=== PATIENT | male | born 1965 | race Two or more races ===

== ENCOUNTER → 2019-04-13 | Outpatient (CLI) | payer OTHER ==
--- NOTE | 2019-04-13 16:10 | RADRPT ---
PROCEDURE: XR right knee and XR left knee. CLINICAL INDICATION: Bilateral knee pain TECHNIQUE: 4 images of the left knee and 4 images of the right knee are available for review. COMPARISON: None available FINDINGS: Right knee: There is no acute fracture. Alignment is normal. There is moderate severe medial femorotibial compartment osteoarthrosis with mild to moderate lateral and patellofemoral compartment osteoarthrosis. There are numerous large ossified bodies posteriorly that may be within a popliteal cyst. Left knee: There is no acute fracture. Alignment is normal. There is severe lateral femorotibial compartment osteoarthrosis with mild to moderate medial and pelletier llofemoral compartment osteoarthrosis. There is a small joint effusion with numerous ossified bodies posteriorly that may be within a poplit eal cyst. IMPRESSION: 1. No radiographic evidence of acute osseous abnormality. 2. Tricompartmental osteoarthrosis of both knees, severe in the lateral femorotibial compartment on t he left and moderate to severe in the medial femorotibial compartment on the right. 3. Ossified posterior bodies bilaterally, right larger than left, possibly within a popliteal cysts. RPTAT: [facility] .John Bustos MD, MD Date Time Electronically viewed and signed by .John Bustos MD, MD on 04/13/2019 16:09 .K/
--- NOTE | 2019-04-14 15:51 | CONS ---
Assessment/Plan Assessment/Plan Hospital Course (Demo Recall) 53-year-old male who presents to clinic today with end-stage osteoarthritis involving his lateral compartment. 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 His symptoms are relatively new as he was mostly asymptomatic prior to 1 month ago. He had a steroid injection which helped his pain 90%. Given his response to conservative treatment and the length of his symptoms I would recommend continuation of injection therapy and other conservative measures. If these fail he would be a good candidate for total knee arthroplasty. Low impact activities Ice Meloxicam Follow-up 3 months Consultation Date/Type/Reason Admit Date/Time Date of Consultation: Apr 14, 2019 Date/Time of Note DATE: 04/14/19 TIME: 15:36 Hx of Present Illness This is a 53-year-old male with a chief complaint of left knee pain. The pain began approximately 30 days ago. The patients pain is in the lateral greater than medial and swelling aspect of the left knee. Pain is not radiating to the lower leg. The pain was 10/10. He could not walk. Therefore he had a steroid injection to his left knee 1 week ago by another physician. He states the pain is now 90% improved and he is able to walk. Prior to him 1 month ago he had minimal pain and symptoms. 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 Patient denies complaints of numbness or tingling. The pain is exacerbated by climbing stairs and ambulation. Duration: 30 days Injury: Traumatic knee injury 20 years ago. No recent injury. Walking tolerance: Prior to steroid injection 0 blocks. Now 3 blocks Limp: Yes Support: No Swelling: Yes Crepitation: Yes Instability: Yes Stairs: Places both feet on step before proceeding to next Physical Therapy: No Injections: Steroid injection 1 week ago NSAIDs: No Prior surgery: Arthroscopic knee surgery 20 years ago Back pain: No Hip pain: No Risk of AVN : No Patient denies fever, chills, shortness of breath, chest pain, nausea/vomiting, constipation, diarrhea, numbness, and tingling. Past Medical History Denies past medical history Past Surgical History Left knee arthroscopic surgery approximately 20 years ago Family History Significant Family History: no pertinent family hx Social History Alcohol Use: none Smoking Status: Never smoker Drug Use: none Exam/Review of Systems Exam Vitals Weight: 235 pounds Height: 5 feet 6 inches BMI: 37.9 Temperature: 98.4 Heart Rate: 75 Blood Pressure: 135/86 Respiratory Rate: 14 Exam General: Alert, oriented x3. No Acute Distress. Heart: Regular rate and rhythm. Lungs: No respiratory distress. No accessory muscle use. Musculoskeletal: Left Knee This is a well developed male who is alert, oriented times three and in no apparent distress. Skin is intact over the left knee as well as the lower extremity with no abrasions, lacerations, or ulcerations. Observation of the patient's gait reveals an antalgic gait with Slight valgus thrust. Frontal plane alignment is valgus. +1 effusion. There is pain on palpation of lateral greater than medial joint line. The patient demonstrates grinding anteriorly with ROM. Range of motion: 3 extension to approximately 130 degrees of flexion. Collateral ligament testing reveals no instability with varus or valgus stress at 0 and 30 degrees of flexion. Negative Vanessa's and negative posterior drawer. Neurovascularly intact with 5/5 EHL/tibialis anterior/gastroc. Sensation intact to light touch in a sural, saphenous, deep peroneal, superficial peroneal, medial and lateral plantar nerve distribution. Palpable, symmetric dorsalis pedis and posterior tibial pulses in both lower extremities. Hip examination normal. Imaging Imaging MRI of the left knee dated 03/30/2019 personally reviewed. Chronic full-thickness ACL tear and chronic sprain of the PCL. Degenerative tear posterior horn of the medial meniscus. Degenerative tears of the lateral meniscus and status post partial lateral meniscectomy. Tricompartmental arthritis with complete full-thickness loss in the lateral compartment. No fr acture. Moderate joint effusion. The patient received a standard set of films today that were personally reviewed. Imaging included a standing bilateral knee AP, PA flexion, merchant views and a dedicated lateral of the affected knee: There is valgus alignment of the knee. There is complete loss of joint space in the lateral compartment and moderate loss in the patellofemoral compartment. There is osteophyte formation. There is subchondral sclerosis. There are subchondral cysts. Degenerative changes are most severe in the lateral compartment(s) JIMI MUSTAFA MD Apr 14, 2019 15:47
== END | disposition home or self-care (01) ==
LOC: HKI 13:51
PROVIDERS: ATTEND Orthopaedic Surgery Adult Reconstructive Orthopaedic Surgery
DX: M17.12 Unilateral primary osteoarthritis, left knee (principal); M25.562 Pain in left knee
CPT/HCPCS: 73564; Z7500; G0463